=== PATIENT | male | born 1980 | race Two or more races ===

== ENCOUNTER 2023-05-22 18:34 | Emergency (ER) | payer MEDICAID, SELFPAY ==
--- NOTE | 2023-05-22 19:19 | ED.GENADULT ---
HPI - General Adult General Stated complaint: rash on R arm Time Seen by Provider: 05/22/23 19:22 Source: patient Mode of arrival: ambulatory Limitations: no limitations History of Present Illness HPI narrative: This is a 43-year-old male presenting with suspected poison mariah to bilateral upper extremities, genital region started about a week and half ago, has tried [id number] medications with little to no relief. Patient reports rash is itchy, he has had this before. Denies chest pain, shortness of breath, nausea, vomiting abdominal pain, fevers, chills, headache, vision changes, dizziness or weakness. This rash is not on palms, soles or in mouth. Related Data Previous Rx's Medication Instructions Recorded hydroxyzine HCl 25 mg tablet 25 mg PO BEDTIME PRN anxiety #10 05/22/23 tabs prednisone 20 mg tablet 60 mg PO DAILY 5 days #15 tabs 05/22/23 Allergies Allergy/AdvReac Type Severity Reaction Status Date / Time No Known Allergies Allergy Unverified 06/28/20 16:31 Review of Systems Review of Systems: Constitutional : No Weight loss, No Fever, No Chills, No Fatigue, No Malaise ENT/Mouth : No sore throat, No Rhinorrhea Eyes: No Eye Pain, No Swelling, No Redness Cardiovascular : No Chest Pain, No SOB, No Dyspnea on Exertion, No Orthopnea, No Edema, No Palpitations Respiratory : No Cough, No Sputum, No Wheezing Gastrointestinal : No Nausea, No Vomiting, No Diarrhea, No Constipation, No abdominal Pain, No Hematochezia, No Melena Genitourinary : No Dysuria, No Urinary Frequency, No Hematuria, Musculoskeletal : No joint pain, No Myalgias, No Joint Swelling Skin : No Skin Lesions, + rash Neuro : No Weakness, No Numbness, No Dizziness, No Headache Psych : No Anxiety/Panic, No Depression All other systems reviewed and are negative Yes all other systems are reviewed and are negative PMFSH Past Medical History Attestation statement: The following information was validated with the patient. Source: old records reviewed and nursing notes reviewed Physical Exam ED Vital Signs: vss Appearance: Alert.? Oriented X3.? No acute distress.? Head: Normocephalic, atraumatic, no step-offs or deformities Eyes: Pupils equal, round and reactive to light.? CVS: Normal heart rate and rhythm.? Pulses normal.? Respiratory: No respiratory distress.? Breath sounds normal.? Abdomen: Soft and nontender.? Skin: Skin warm and dry.? Normal skin color.? Normal skin turgor.? + vesicles w/ dried healing vesicles overlying erythematous base b/l UE ( per patient in genital region same rash defred sensative exam) Extremities: No lower extremity edema.? No calf ttp. 5/5 strength to bilateral upper and lower extremities Back: No midline tenderness, no C-spine tenderness, full range of motion, no CVA tenderness bilaterally Neuro: Oriented X 3.? No motor deficit.? No sensory deficit. CN 2-12 intact Course Course Course Narrative: This is an RME: Additional HPI, ROS, PE not included below will be deferred to primary provider. Medical Decision Making Medical Decision Making [facility] Narrative: 1928 43-year-old male presents with suspected poison mariah. Physical exam significant for vesicles w/ dried healing vesicles overlying erythematous base b/l UE ( per patient in genital region same rash defred sensative exam) this is likely contact plant dermatitis. Patient concern for STDs unlikely herpes, no signs of necrotizing infection, necrosis. No signs of cellulitis. Plan at this time discharge from the waiting room with Atarax, prednisone. Educated patient on diagnosis and treatment plan, answered all question, patient verbalizes understanding. At this time patient will be discharged home, advised to return with new or worsening symptoms. Educated on worrisome signs and symptoms and when to return. At this time I feel comfortable discharge home., Differential Diagnosis Differential Diagnoses: The differential diagnosis associated with the presentation includes this is likely contact plant dermatitis. Patient concern for STDs unlikely herpes, no signs of necrotizing infection, necrosis. No signs of cellulitis. Admission/Observation Consideration of admission/observation: Escalation of care including admission/observation considered No indication Tests considered The following testing was considered but not selected: No ndication for labs Core Measures AMI core measures followed: Yes Measure exclusions: not indicated Discharge Plan Discharge Clinical Impression: Allergic contact dermatitis due to plant Patient Disposition: Home, Self-Care Instructions: Poison Mariah (ED), Acute Rash (ED), Dermatitis (ED), Cold Compress or Soak (ED) Additional Instructions: Take your medications as prescribed. If you were prescribed antibiotics today, it is important that you take your medication to their entirety, do not skip any doses, do not finish them early. Follow-up with your primary care provider this week. Return to the emergency department with new or worsening symptoms. Such as fevers, chills, chest pain, shortness of breath, nausea, vomiting, dizziness, headache, vision changes, lethargy In case of emergency call 911 Prescriptions: New prednisone 20 mg tablet 60 mg PO DAILY 5 Days Qty: 15 0RF hydroxyzine HCl 25 mg tablet 25 mg PO BEDTIME PRN (Reason: anxiety) Qty: 10 0RF Referrals: Physician,Unknown J [Primary Care Provider] - 2 days Stand Alone Forms: Work/School Release
[2023-05-22 19:22] VITALS: BP 115/106; PULSE 79; RESP 20; TEMP 36.7; O2SAT 98; BMI 28.9
--- NOTE | 2023-05-22 19:32 | PC.NURSE ---
Pt assessed and discharge by provider, This RN reviewed discharge instruction with pt, pt verbalized understanding.
== END 2023-05-22 19:49 | disposition home or self-care (01) ==
LOC: HO.ED 19:37
PROVIDERS: Emergency Provider Emergency Medicine
DX: L23.7 Allergic contact dermatitis due to plants, except food (principal)
CPT/HCPCS: 99282; 99283